=== PATIENT | female | born 1955 | race Caucasian/White ===

== ENCOUNTER → 2016-08-31 | Outpatient (CLI) | payer OTHER ==
[~2016-08-31] MED LIST: CITA-50 PO; ESTR1TAB88 PO; GABA-218 PO; MULT-806 PO; [UNRECOGNIZED DRUG - CODE] PO
== END ==
LOC: WC.BC 09:06
DX: Z12.31 Encounter for screening mammogram for malignant neoplasm of breast (principal)
CPT/HCPCS: 77063; G0202